=== PATIENT | female | born 1965 | race Caucasian/White ===

== ENCOUNTER 2019-11-10 12:54 | Observation (INO) | payer OTHER, BC ==
[2019-11-10 13:44] LABS: Absolute Lymphocytes (CBC) 1.9 K/uL (0.7-4.9); Basophils % 0.7 % (0-1.3); Hematocrit 35.3 % (36.0-45.0); MPV 9.6 fL (7.6-11.3); RBC Red Blood Cell Count 4.66 M/uL (3.86-4.86)
[2019-11-10 13:54] LABS: Protime INR 1.02
--- NOTE | 2019-11-10 13:59 | RAD REPORT ---
EXAM DESCRIPTION: RAD - Chest Single View - 11/10/2019 1:17 pm CLINICAL HISTORY: CHEST PAIN, left-sided COMPARISON: None TECHNIQUE: AP portable chest image was obtained 11/10/2019 1:17 pm . FINDINGS: Lungs are clear. Heart and vasculature are normal. No measurable pleural effusion and no p neumothorax. No acute bony abnormality seen. No acute aortic findings suspected. IMPRESSION: No acute cardiopulmonary process.
[2019-11-10 14:04] LABS: ALT/SGPT 22 U/L (12-78); AST/SGOT 16 U/L (15-37); Albumin 3.5 g/dL (3.4-5.0); Alkaline Phosphatase 88 U/L (45-117); BUN Blood Urea Nitrogen 19 mg/dL (7-18); Bicarbonate 25 mmol/L (21-32); Bilirubin Direct < 0.1 mg/dL (0-0.2); Bilirubin Total 0.2 mg/dL (0.2-1.0); Glucose Level 240 mg/dL (74-106); Magnesium 1.9 mg/dL (1.8-2.4); NT PRO-BNP 28 pg/mL (<125); Potassium 3.6 mmol/L (3.5-5.1); Protein, Total 6.9 g/dL (6.4-8.2); Sodium Level 139 mmol/L (136-145); Troponin (Emerg Dept Use Only) < 0.02 ng/mL (0.0-0.045)
[2019-11-10] MEDS ORDERED: MAGNE/ALUM HYDROXD 30 ML UCUP ONE (14:56)
[2019-11-10] MEDS ORDERED: ASPIRIN 81 MG CHEWABLE TABLET ONE (14:56)
[2019-11-10] MEDS ORDERED: NA CHLORIDE 0.9% 1,000 ML ONE (14:56)
[2019-11-10] MEDS ORDERED: LIDOCAINE VISCOUS 2% SOLN 15 ML UDC ONE (14:57)
--- NOTE | 2019-11-10 16:57 | ER ---
Nurse's Notes [facility] Name: Tiana Sloan Age: 54 yrs Sex: Female : 1965 Arrival Date: 11/10/2019 Time: 12:55 Bed 7 Private MD: Diagnosis: Chest pain, unspecified Presentation: 11/09 13:09 Chief complaint: Patient states: L sided chest pain x 2 weeks, worse w/ movement, also ph c/o numbness to L hand and slight SOB, denies dizziness, N/V or fever. Coronavirus screen: The patient has NOT traveled to a country currently being monitored by the [facility] within the last 14 days. The patient has NOT had contact with any known and/or suspected case of coronavirus. Ebola Screen: No symptoms or risks identified at this time. Initial Sepsis Screen: Does the patient meet any 2 criteria? No. Patient's initial sepsis screen is negative. Does the patient have a suspected source of infection? No. Patient's initial sepsis screen is negative. Risk Assessment: Do you want to hurt yourself or someone else? Patient reports no desire to harm self or others. 13:09 Method Of Arrival: Ambulatory ph 13:09 Acuity: PATRICA 3 ph Historical: - Allergies: 13:13 No Known Allergies; ph - PMHx: 13:13 Diabetes - NIDDM; ph - PSHx: 13:13 ; Gastric Bypass; ph - Immunization history:: Adult Immunizations unknown. - Social history:: Smoking status: Patient denies any tobacco usage or history of. Screenin:20 Abuse screen: Denies threats or abuse. Nutritional screening: No deficits noted. em Tuberculosis screening: No symptoms or risk factors identified. Fall Risk None identified. Assessment: 13:25 General: Appears in no apparent distress. comfortable, Behavior is calm, cooperative, em appropriate for age, Denies fever. Pain: Complains of pain in chest Pain does not radiate. Pain currently is 1 out of 10 on a pain scale. Quality of pain is described as heavy, Pain began 2 weeks. Neuro: Level of Consciousness is awake, alert, obeys commands, Oriented to person, place, time, situation, Appropriate for age Reports paresthesias in left hand. Cardiovascular: Capillary refill < 3 seconds Patient's skin is warm and dry. Rhythm is sinus rhythm. Respiratory: Airway is patent Respiratory effort is even, unlabored, Respiratory pattern is regular, symmetrical, Breath sounds are clear bilaterally. Denies cough. GI: Abdomen is flat, Patient currently denies nausea, vomiting. Derm: Skin is intact, is healthy with good turgor, Skin is pink, warm \T\ dry. Musculoskeletal: Capillary refill < 3 seconds, Range of motion: intact in all extremities. 14:30 Reassessment: Patient appears in no apparent distress at this time. No changes from em previously documented assessment. Patient and/or family updated on plan of care and expected duration. Pain level reassessed. Patient is alert, oriented x 3, equal unlabored respirations, skin warm/dry/pink. 16:07 Reassessment: Patient appears in no apparent distress at this time. Patient and/or em family updated on plan of care and expected duration. Pain level reassessed. Patient is alert, oriented x 3, equal unlabored respirations, skin warm/dry/pink. 17:22 Reassessment: Dr. Monson at bedside a this time. tw2 17:27 Reassessment: Patient appears in no apparent distress at this time. No changes from tw2 previously documented assessment. Patient and/or family updated on plan of care and expected duration. Pain level reassessed. Patient is alert, oriented x 3, equal unlabored respirations, skin warm/dry/pink. 18:09 Reassessment: Patient appears in no apparent distress at this time. dinner tray given. em 19:15 Reassessment: Patient appears in no apparent distress at this time. Patient and/or jb4 family updated on plan of care and expected duration. Pain level reassessed. Patient is alert, oriented x 3, equal unlabored respirations, skin warm/dry/pink. Pt reports being comfortable, denies needing anything at this time. Pt awaiting for a room assignment. 20:24 Reassessment: Patient appears in no apparent distress at this time. Patient and/or jb4 family updated on plan of care and expected duration. Pain level reassessed. Patient is alert, oriented x 3, equal unlabored respirations, skin warm/dry/pink. Pt informed of room assignment. 20:28 Reassessment: attempted to call report, instructed to wait for call back. jb4 20:45 Reassessment: Patient appears in no apparent distress at this time. Patient and/or jb4 family updated on plan of care and expected duration. Pain level reassessed. Patient is alert, oriented x 3, equal unlabored respirations, skin warm/dry/pink. Pt transferred upstairs via wheelchair. IV site dry and intact with no s/s of infiltration or phlebitis, saline lock. Vital Signs: 13:09 BP 109 / 68; Pulse 75; Resp 18; Temp 97.9; Pulse Ox 99% on R/A; Weight 62.6 kg; Height ph 5 ft. 10 in. (177.80 cm); Pain 1/10; 13:45 BP 98 / 69; Pulse 69; Resp 18; Pulse Ox 98% on R/A; Pain 1/10; em 14:48 BP 104 / 64; Pulse 58; Resp 17; Pulse Ox 97% on R/A; tw2 15:45 BP 115 / 75; Pulse 48; Resp 17; Pulse Ox 100% on R/A; tw2 16:45 BP 111 / 69; Pulse 62; Resp 17; Pulse Ox 97% on R/A; tw2 17:30 BP 114 / 70; Pulse 61; Resp 18; Pulse Ox 99% on R/A; em 18:45 BP 122 / 86; Pulse 97; Resp 20; Pulse Ox 99% on R/A; Pain 0/10; em 19:30 BP 118 / 75; Pulse 85; Resp 13; Pulse Ox 96% on R/A; jb4 20:24 BP 96 / 67; Pulse 80; Resp 13; Temp 98.8(O); Pulse Ox 95% ; jb4 13:09 Body Mass Index 19.80 (62.60 kg, 177.80 cm) ph ED Course: 12:55 Patient arrived in ED. ag5 13:01 David Serrano PA is PHCP. cp 13:01 Foreign Gu MD is Attending Physician. cp 13:05 EKG done, by ED staff, reviewed by David DARDEN. jp3 13:11 Brodie Putnam, CARITO is Primary Nurse. em 13:11 Triage completed. ph 13:13 Arm band placed on Patient placed in an exam room. EKG completed in triage. Results ph shown to MD. 13:15 XRAY Chest (1 view) In Process Unspecified. EDMS 13:20 Patient has correct armband on for positive identification. Placed in gown. Bed in low em position. Call light in reach. Adult w/ patient. cardiac monitor technician on. Pulse ox on. NIBP on. 13:20 Patient maintains SpO2 saturation greater than 95% on room air. em 13:25 Initial lab(s) drawn, by me, sent to lab. Inserted saline lock: 20 gauge in right em antecubital area, using aseptic technique. Blood collected. 16:45 EKG done, by ED staff, reviewed by David DARDEN. jp3 16:54 Marian Monson MD is Hospitalizing Provider. cp 17:55 Repeat lab(s) drawn. by ne, sent to lab. em 20:28 No provider procedures requiring assistance completed. Patient admitted, IV remains in jb4 place. Administered Medications: 15:00 Drug: NS 0.9% 1000 ml Route: IV; Rate: 1 bolus; Site: right antecubital; tw2 16:14 Follow up: IV Status: Completed infusion; IV Intake: 1000ml em 15:00 Drug: Aspirin Chewable Tablet 324 mg Route: PO; tw2 16:04 Follow up: Response: No adverse reaction em 15:00 Drug: GI Cocktail without - (Maalox Suspension 30 ml, Lidocaine Liquid 2 % 15 tw2 ml) Route: PO; 16:13 Follow up: Response: No adverse reaction; Marked relief of symptoms; Pain is decreased em Intake: 16:14 IV: 1000ml; Total: 1000ml. em Outcome: 16:55 Decision to Hospitalize by Provider. cp 20:45 Admitted to Tele accompanied by nurse, via wheelchair, room 407, with chart, Report jb4 called to CARITO Rosado 20:45 Condition: stable 20:45 Discharge instructions given to patient, Instructed on the need for admit, Demonstrated understanding of instructions. 20:48 Patient left the ED. jb4 Signatures: Dispatcher [employer] EDMS Brodie Putnam, RN RN Olivia Ho RN RN David Serrano PA PA cp Umm Price, CARITO RN tw2 Maxim Magallanes, CARITO RN jb4 Gerard Messer jp3 Ashvin Benton 5
--- NOTE | 2019-11-10 16:57 | EDPHYS ---
Physician Documentation [facility] Name: Tiana Sloan Age: 54 yrs Sex: Female : 1965 Arrival Date: 11/10/2019 Time: 12:55 Bed 7 Private MD: ED Physician Foreign Gu HPI: 11/09 13:15 This 54 yrs old Female presents to ER via Ambulatory with complaints of Chest cp Pain, Chest Pressure. 13:15 The patient or guardian reports chest pain that is located primarily in the anterior cp chest wall, left. 13:15 Onset: 2 week(s) ago. The pain does not radiate. Associated signs and symptoms: cp Pertinent positives: shortness of breath, Pertinent negatives: abdominal pain, cough, diarrhea, fever, headache, sore throat, vomiting, wheezing. Modifying factors: the patient symptoms are aggravated by nothing. Associated signs and symptoms: Pertinent negatives: abdominal pain, diaphoresis, headache, lower extremity pain, lower extremity swelling, recent travel, syncope. The chest pain is described as a pressure. Duration: The patient or guardian reports multiple episodes, that wax and wane. Historical: - Allergies: 13:13 No Known Allergies; ph - PMHx: 13:13 Diabetes - NIDDM; ph - PSHx: 13:13 ; Gastric Bypass; ph - Immunization history:: Adult Immunizations unknown. - Social history:: Smoking status: Patient denies any tobacco usage or history of. ROS: 13:20 Constitutional: Negative for body aches, chills, fever, poor PO intake. cp 13:20 Eyes: Negative for injury, pain, redness, and discharge. cp 13:20 ENT: Negative for drainage from ear(s), ear pain, sore throat, difficulty swallowing, cp difficulty handling secretions. 13:20 Cardiovascular: Positive for chest pain, Negative for edema, palpitations. 13:20 Respiratory: Negative for cough, shortness of breath, wheezing. 13:20 Abdomen/GI: Negative for abdominal pain, nausea, vomiting, and diarrhea, constipation, black/tarry stool, rectal bleeding. 13:20 Back: Negative for pain at rest, pain with movement. 13:20 Skin: Negative for rash. 13:20 Neuro: Negative for altered mental status, headache, syncope, weakness. 13:20 All other systems are negative. cp Exam: 13:23 ECG was reviewed by the Attending Physician. cp 13:25 Constitutional: The patient appears in no acute distress, alert, awake, cp non-diaphoretic, non-toxic, well developed, well nourished. 13:25 Head/Face: Normocephalic, atraumatic. Eyes: Pupils equal round and reactive to light, cp extra-ocular motions intact. Lids and lashes normal. Conjunctiva and sclera are non-icteric and not injected. Cornea within normal limits. Periorbital areas with no swelling, redness, or edema. ENT: Nares patent. No nasal discharge, no septal abnormalities noted. Tympanic membranes are normal and external auditory canals are clear. Oropharynx with no redness, swelling, or masses, exudates, or evidence of obstruction, uvula midline. Mucous membranes moist. Chest/axilla: Normal chest wall appearance and motion. Nontender with no deformity. No lesions are appreciated. Cardiovascular: Regular rate and rhythm with a normal S1 and S2. No gallops, murmurs, or rubs. Normal PMI, no JVD. No pulse deficits. Respiratory: Lungs have equal breath sounds bilaterally, clear to auscultation and percussion. No rales, rhonchi or wheezes noted. No increased work of breathing, no retractions or nasal flaring. Abdomen/GI: Soft, non-tender, with normal bowel sounds. No distension or tympany. No guarding or rebound. No evidence of tenderness throughout. Skin: Warm, dry with normal turgor. Normal color with no rashes, no lesions, and no evidence of cellulitis. 13:25 Neuro: Orientation: to person, place \T\ time. Mentation: is normal, Cerebellar function: is grossly normal, Motor: moves all fours, strength is normal, Sensation: is normal. Vital Signs: 13:09 BP 109 / 68; Pulse 75; Resp 18; Temp 97.9; Pulse Ox 99% on R/A; Weight 62.6 kg; Height ph 5 ft. 10 in. (177.80 cm); Pain 1/10; 13:45 BP 98 / 69; Pulse 69; Resp 18; Pulse Ox 98% on R/A; Pain 1/10; em 14:48 BP 104 / 64; Pulse 58; Resp 17; Pulse Ox 97% on R/A; tw2 15:45 BP 115 / 75; Pulse 48; Resp 17; Pulse Ox 100% on R/A; tw2 16:45 BP 111 / 69; Pulse 62; Resp 17; Pulse Ox 97% on R/A; tw2 17:30 BP 114 / 70; Pulse 61; Resp 18; Pulse Ox 99% on R/A; em 18:45 BP 122 / 86; Pulse 97; Resp 20; Pulse Ox 99% on R/A; Pain 0/10; em 19:30 BP 118 / 75; Pulse 85; Resp 13; Pulse Ox 96% on R/A; jb4 20:24 BP 96 / 67; Pulse 80; Resp 13; Temp 98.8(O); Pulse Ox 95% ; jb4 13:09 Body Mass Index 19.80 (62.60 kg, 177.80 cm) ph MDM: 13:05 Patient medically screened. cp 13:30 Differential diagnosis: abnormal EKG, acute myocardial infarction, acute pericarditis, cp cholecystitis, Cholelithiasis costochondritis, gastroesophageal reflux disease (GERD), peptic ulcer disease, pneumonia, pneumothorax, stable angina, unstable angina. 17:00 The patient was given aspirin in the Emergency Department. cp 17:00 Data reviewed: vital signs, nurses notes, lab test result(s), EKG, radiologic studies, cp plain films, I have discussed the patient's presentation/case with the attending Emergency Department Physician; and as a result, I will admit patient. 11/09 13:05 Order name: Basic Metabolic Panel; Complete Time: 14:17 cp 11/09 14:17 Interpretation: GLUC 240; BUN 19; GFR 60. cp 11/09 13:05 Order name: CBC with Diff; Complete Time: 14:17 cp 11/09 14:17 Interpretation: Normal except: HGB 11.2; HCT 35.3; MCV 75.8; MCH 23.9; MCHC 31.6; RDW cp 16.1. 11/09 13:05 Order name: LFT's; Complete Time: 14:17 cp 11/09 14:46 Interpretation: Normal except: A/G 1.0. cp 11/09 13:05 Order name: Magnesium; Complete Time: 14:17 cp 11/09 13:05 Order name: NT PRO-BNP; Complete Time: 14:17 cp 11/09 13:05 Order name: PT-INR; Complete Time: 14:17 cp 11/09 13:05 Order name: Troponin (emerg Dept Use Only); Complete Time: 14:17 cp 11/09 14:18 Interpretation: Within normal limits: TROPED < 0.02. cp 11/09 13:05 Order name: XRAY Chest (1 view); Complete Time: 14:17 cp 11/09 14:17 Interpretation: Report review. cp 11/09 13:05 Order name: EKG; Complete Time: 13:06 cp 11/09 15:50 Order name: EKG; Complete Time: 15:50 cp 11/09 17:40 Order name: Troponin I EDMS 11/09 13:05 Order name: Cardiac monitoring; Complete Time: 13:30 cp 11/09 13:05 Order name: EKG - Nurse/Tech; Complete Time: 13:30 cp 11/09 13:05 Order name: IV Saline Lock; Complete Time: 13:29 cp 11/09 13:05 Order name: Labs collected and sent; Complete Time: 13:29 cp 11/09 13:05 Order name: O2 Per Protocol; Complete Time: 13:29 cp 11/09 13:05 Order name: O2 Sat Monitoring; Complete Time: 13:29 cp 11/09 15:50 Order name: EKG - Nurse/Tech; Complete Time: 17:41 cp 11/09 17:39 Order name: Diet Regular; Complete Time: 17:39 cp EC:23 Rate is 71 beats/min. Rhythm is regular. GA interval is normal. QRS interval is normal. cp QT interval is normal. T waves are Flattened in lead III. Interpreted by me. Reviewed by me. Administered Medications: 15:00 Drug: NS 0.9% 1000 ml Route: IV; Rate: 1 bolus; Site: right antecubital; tw2 16:14 Follow up: IV Status: Completed infusion; IV Intake: 1000ml em 15:00 Drug: Aspirin Chewable Tablet 324 mg Route: PO; tw2 16:04 Follow up: Response: No adverse reaction em 15:00 Drug: GI Cocktail without - (Maalox Suspension 30 ml, Lidocaine Liquid 2 % 15 tw2 ml) Route: PO; 16:13 Follow up: Response: No adverse reaction; Marked relief of symptoms; Pain is decreased em Disposition: 11/10/19 16:55 Hospitalization ordered by Marian Monson for Observation. Preliminary diagnosis is Chest pain, unspecified. - Bed requested for Telemetry/MedSurg (observation). - Status is Observation. jb4 - Condition is Stable. - Problem is new. - Symptoms have improved. Addendum: 11/23/2019 12:58 Co-signature as Attending Physician, Munir Ramos MD I agree with the assessment and k dr plan of care. Signatures: Dispatcher [employer] EDWY Munir Ramos MD MD [facility] Olivia Ho RN RN ph David Serrano PA PA cp Dena Deleon, RN RN Umm Price RN RN tw2 Maxim Magallanes, RN RN jb4 Brodie Putnam RN em Corrections: (The following items were deleted from the chart) 11/09 20:18 16:55 Hospitalization Ordered by Marian Monson MD for Observation. Preliminary diagnosis cg is Chest pain, unspecified. Bed requested for Telemetry/MedSurg (observation). Status is Observation. Condition is Stable. Problem is new. Symptoms have improved. cp 20:48 20:18 11/10/2019 16:55 Hospitalization Ordered by Marian Monson MD for Observation. jb4 Preliminary diagnosis is Chest pain, unspecified. Bed requested for Telemetry/MedSurg (observation). Status is Observation. Condition is Stable. Problem is new. Symptoms have improved. cg 21:45 13:15 The patient or guardian reports chest pain that is located primarily in the cp anterior chest wall, bilaterally, cp
--- NOTE | 2019-11-10 17:45 | EKG ---
Test Date: 2019-11-10 Test Time: 13:02:27 Gm Video: RHODA MEASUREMENT RESULTS: Intervals: Rate: 71 NJ: 164 QRSD: 80 QT: 394 QTc: 428 Sunflower: P: 44 NJ: 164 QRS: -40 T: 43 INTERPRETIVE STATEMENTS: Normal sinus rhythm Left axis deviation Low voltage QRS Inferior infarct, age undetermined Cannot rule out Anteroseptal infarct, age undetermined Abnormal ECG Compared to ECG 10/15/2016 17:19:14 Left-axis deviation now present Low QRS voltage now present Myocardial infarct finding now present Sinus bradycardia no longer present Sinus arrhythmia no longer present Electronically Signed On 11-10-19 17:44:28 CDT by Kieran Orta
--- NOTE | 2019-11-10 17:46 | P.CNS ---
Date of Consult: 11/10/19 Reason for Consult: Chest pain Chief Complaint: Chest pain History of Present Illness: Patient is a 54-year-old female with past medical history of diabetes nonsmoker comes in with chest pressure of 2 weeks duration. Patient cannot remember what she was doing when the pain 1st started. No associated nausea vomiting diaphoresis or shortness of breath. Patient's chest pressure is intermittent. She states it is exacerbated by eating. Patient did report some tingling in her left hand however should be noted that she has carpal tunnel syndrome. Patient presented to the ER today as she had been wanting to have herself evaluated. Her vital signs were stable. Her workup revealed negative cardiac enzymes patient's EKG initially was normal sinus rhythm however repeat EKG showed nonspecific T-wave inversions. Patient's pain had resolved with GI cocktail. Hospitalist service was contacted for possible admission. Patient was seen and examined case was discussed with metal organ pipe maker Dr. Orta. Plan is to repeat cardiac enzymes and to discharge home with close followup if troponin is negative. This is likely atypical chest pain may be related to GERD gastric ulcer. Allergies No Known Allergies Allergy (Verified 10/15/16 16:54) Home Medications: Dapagliflozin/Metformin HCl [Xigduo Xr 5 mg-1,000 mg Tablet] 1 each PO BID 10/15 Dulaglutide [Trulicity] 1.5 mg SQ DAILY 10/15/16 Multivitamin [Multivitamins] 1 each PO DAILY 10/15/16 Codeine/APAP [Tylenol W/Codeine #3 tab] 1 tab PO Q4HP PRN #30 tab 10/19/16 Sulfamethoxazole/Trimethoprim [Bactrim Ds Tablet] 1 each PO BID #10 tablet 10/19 - Past Medical/Surgical History Diabetic: Yes -: Diabetes -: Carpal tunnel syndrome -: x2 -: Carpal tunnel surgery on the right - Social History Smoking Status: Never smoker Alcohol use: No Place of Residence: Home Review of Systems 10-point ROS is otherwise unremarkable Cardiovascular: As per HPI Physical Examination General: Alert, In no apparent distress, Oriented x3 HEENT: Atraumatic, PERRLA, Mucous membr. moist/pink, EOMI, Sclerae nonicteric Neck: Supple, JVD not distended Respiratory: Clear to auscultation bilaterally, Normal air movement Cardiovascular: No edema, Normal pulses, Regular rate/rhythm, Normal S1 S2 Gastrointestinal: Normal bowel sounds, Soft and benign, Non-distended, No tenderness Musculoskeletal: No tenderness Integumentary: No rashes Neurological: Normal gait, Normal speech, Normal tone, Normal affect Laboratory Data (last 24 hrs) 11/10/19 13:25: PT 12.0, INR 1.02 11/10/19 13:25: WBC 6.2, Hgb 11.2 L, Hct 35.3 L, Plt Count 216 11/10/19 13:25: Sodium 139, Potassium 3.6, BUN 19 H, Creatinine 0.97, Glucose 240 H, Magnesium 1.9, Total Bilirubin 0.2, AST 16, ALT 22, Alkaline Phosphatase 88 Imagings Data: IMPRESSION: No acute cardiopulmonary process. Chest x-ray - Problems (1) Atypical chest pain Current Visit: Yes Status: Acute (2) Diabetes mellitus type 2 in nonobese Current Visit: Yes Status: Acute (3) Carpal tunnel syndrome Current Visit: Yes Status: Acute Conclusions/Impression: Likely atypical chest pain. GI source either GERD or ulcer. Pain is worse with food. Improved with GI cocktail. Negative cardiac enzyme Nonspecific T-wave changes Cardiology recommends outpatient followup
--- NOTE | 2019-11-10 18:08 | P.HP ---
Certification for Inpatient Patient admitted to: Observation With expected LOS: <2 Midnights Practitioner: I am a practitioner with admitting privileges, knowledge of patient current condition, hospital course, and medical plan of care. Services: Services provided to patient in accordance with Admission requirements found in Title 42 Section 412.3 of the Code of Federal Regulations Patient History Date of Service: 11/10/19 Reason for admission: Chest pain History of Present Illness: Patient is a 54-year-old female with past medical history of diabetes nonsmoker comes in with chest pressure of 2 weeks duration. Patient cannot remember what she was doing when the pain 1st started. No associated nausea vomiting diaphoresis or shortness of breath. Patient's chest pressure is intermittent. She states it is exacerbated by eating. Patient did report some tingling in her left hand however should be noted that she has carpal tunnel syndrome. Patient presented to the ER today as she had been wanting to have herself evaluated. Her vital signs were stable. Her workup revealed negative cardiac enzymes patient's EKG initially was normal sinus rhythm however repeat EKG showed nonspecific T-wave inversions. Patient's pain had resolved with GI cocktail. Allergies No Known Allergies Allergy (Verified 10/15/16 16:54) Home medications list reviewed: Yes Home Medications: Dapagliflozin/Metformin HCl [Xigduo Xr 5 mg-1,000 mg Tablet] 1 each PO BID 10/15 Dulaglutide [Trulicity] 1.5 mg SQ DAILY 10/15/16 Multivitamin [Multivitamins] 1 each PO DAILY 10/15/16 Codeine/APAP [Tylenol W/Codeine #3 tab] 1 tab PO Q4HP PRN #30 tab 10/19/16 Sulfamethoxazole/Trimethoprim [Bactrim Ds Tablet] 1 each PO BID #10 tablet 10/19 - Past Medical/Surgical History Diabetic: Yes -: Diabetes -: Carpal tunnel -: Carpal tunnel surgery right - Family History Mother -: Heart disease (Congestive heart failure) - Social History Smoking Status: Never smoker Alcohol use: No Place of Residence: Home Review of Systems 10-point ROS is otherwise unremarkable Cardiovascular: As per HPI Physical Examination - Vital Signs Temperature: 97.9 F Blood Pressure: 109/68 Pulse: 75 Respirations: 18 Pulse Ox (%): 99 - Physical Exam General: Alert, In no apparent distress, Oriented x3 HEENT: Atraumatic, PERRLA, Mucous membr. moist/pink, EOMI, Sclerae nonicteric Neck: Supple, JVD not distended Respiratory: Clear to auscultation bilaterally, Normal air movement Cardiovascular: No edema, Normal pulses, Regular rate/rhythm, Normal S1 S2 Gastrointestinal: Normal bowel sounds, Soft and benign, Non-distended, No tenderness Musculoskeletal: No clubbing, No tenderness Integumentary: No rashes Neurological: Normal gait, Normal speech, Normal strength at 5/5 x4 extr, Normal tone, Cranial nerves 3-12 intact, Normal affect - Studies Laboratory Data (last 24 hrs) 11/10/19 13:25: PT 12.0, INR 1.02 11/10/19 13:25: WBC 6.2, Hgb 11.2 L, Hct 35.3 L, Plt Count 216 11/10/19 13:25: Sodium 139, Potassium 3.6, BUN 19 H, Creatinine 0.97, Glucose 240 H, Magnesium 1.9, Total Bilirubin 0.2, AST 16, ALT 22, Alkaline Phosphatase 88 Imagings Data: Chest x-ray shows no acute abnormalities Assessment and Plan - Problems (Diagnosis) (1) Chest pain Current Visit: Yes Status: Acute Qualifiers: Chest pain type: other chest pain Qualified Code(s): R07.89 - Other chest pain; R07.8 - Other chest pain (2) Diabetes mellitus type 2 in nonobese Current Visit: Yes Status: Acute (3) Carpal tunnel syndrome Current Visit: Yes Status: Acute - Plan Serial cardiac enzymes Start on chest pain guidelines Repeat EKG Spoke with Cardiology on-call Dr. Orta. If cardiac enzymes are negative he recommends discharge home with outpatient follow up. Pain is likely atypical stemming from a GI source such as acid reflux or gastric ulcer. Will start on PPI Sliding scale insulin Monitor Accu-Cheks Discharge Plan: Home Plan to discharge in: 24 Hours - Advance Directives Does patient have a Living Will: No Does patient have a Durable POA for Healthcare: No
[2019-11-10] MEDS ORDERED: FAMOTIDINE 20 MG/2 ML VIAL IV SCH (21:12)
[2019-11-10] MEDS ORDERED: MORPHINE 4 MG/ML SYR IV PRN (21:12)
[2019-11-10] MEDS ORDERED: ACETAMINOPHEN 500 MG TAB PO PRN (21:12)
[2019-11-10] MEDS: carvediloL 3.125 MG TAB PO SCH (21:12)
[2019-11-10] MEDS ORDERED: NITROGLYCERIN 0.4 MG/TAB SL PRN (21:12)
[2019-11-10 21:13] VITALS: BMI 25.5
[2019-11-10] MEDS ORDERED: ENOXAPARIN 40 MG/0.4 ML SQ SCH (22:00)
[2019-11-10] MEDS: INSULIN -REGULAR HUMAN 50 UNIT/0.5 ML ML SQ SCH (22:02)
[2019-11-10] MEDS: NA CHLORIDE 0.9% 1,000 ML IV SCH (22:46)
[2019-11-11 05:07] LABS: Absolute Lymphocytes (CBC) 2.4 K/uL (0.7-4.9); Basophils % 0.9 % (0-1.3); Hematocrit 33.9 % (36.0-45.0); Lymphocytes % 41.1 % (15.3-44.8); MPV 9.7 fL (7.6-11.3); RBC Red Blood Cell Count 4.44 M/uL (3.86-4.86)
[2019-11-11 05:10] LABS: Potassium 3.7 mmol/L (3.5-5.1)
[2019-11-11] MEDS ORDERED: NA CHLORIDE 0.9% 1,000 ML IV ONE (05:43)
[2019-11-11] MEDS: carvediloL 3.125 MG TAB PO SCH (05:47)
[2019-11-11] MEDS: INSULIN -REGULAR HUMAN 50 UNIT/0.5 ML ML SQ SCH ×2 (07:30→11:30)
[2019-11-11] MEDS: NA CHLORIDE 0.9% 1,000 ML IV SCH (08:08)
[2019-11-11 08:14] VITALS: O2SAT 96
[2019-11-11] MEDS ORDERED: ASPIRIN EC 81 MG TAB PO SCH (09:00)
[2019-11-11] MEDS ORDERED: lisinopriL 10 MG TAB PO SCH (09:00)
[2019-11-11] MEDS ORDERED: FAMOTIDINE 20 MG/2 ML VIAL IV SCH (09:00)
[2019-11-11 12:08] VITALS: BP 101/59; TEMP 97.6
--- NOTE | 2019-11-11 23:18 | DS ---
Date of Discharge: 11/11/2019 Discharge Diagnoses: 1.Atypical chest pain. 2.Diabetes mellitus type 2 with hyperglycemia. 3.Carpal tunnel syndrome. 4.Status post gastric bypass surgery with likely anastomotic ulcer. Hospital Course: Patient is a 54-year-old female, who comes in with past medical history of diabetes with 2 weeks of chest pain. Patient was admitted to the hospital and evaluated for chest pain rule out. Her cardiac enzymes were negative. Her story seemed to be more consistent with gastrointestina l issues including possible anastomotic ulcer from her gastric bypass surgery. Patient's symptoms wo rsened with eating and improved with GI cocktail in the ER. Patient was started on PPI b.i.d. Her c ardiac enzymes were negative x3. Echocardiogram not available. Spoke with certified caregiver on-call, Dr. Orta. He recommended outpatient followup for the patient. Lipid panel showed mildly elevated tri glycerides at 245. She was counseled regarding her diet. Patient also found to be somewhat anemic w ith microcytosis. This is likely maybe possibly due to pernicious anemia due to her gastric bypass. She was instructed to follow up with GI and establish care with GI for EGD and to supplement vitamin s due to her pernicious anemia. She will be given trial of Protonix as this is likely an anastomotic gastric ulcer. Patient's symptoms have been ongoing for the past 2 weeks. Followup: She is to follow up with primary care physician in 2-3 days, return to ER for worsening co ndition. Diet: Diabetic. Activity: As tolerated. Medications: As per medication reconciliation list. Physical Examination: GENERAL: Awake, alert, and oriented x3. No acute distress. CV: S1, S2. No murmurs. RESPIRATORY: Moving air well bilaterally. No wheezing or stridor. GASTROINTESTINAL: Abdomen is soft, nontender, nondistended. Positive bowel sounds. EXTREMITIES: No clubbing, cyanosis, or edema. NEUROLOGIC: Nonfocal. SA/MODL Voice ID: [id number] Report ID: [id number]
--- NOTE | 2019-11-12 09:01 | EKG ---
Test Date: 2019-11-10 Test Time: 16:46:59 Shaping Machine Operator: EDGARD MEASUREMENT RESULTS: Intervals: Rate: 54 CA: 160 QRSD: 80 QT: 420 QTc: 398 [place]: P: 81 CA: 160 QRS: -9 T: 103 INTERPRETIVE STATEMENTS: Sinus bradycardia with marked sinus arrhythmia Low voltage QRS Septal infarct, age undetermined Abnormal ECG Compared to ECG 11/10/2019 13:02:27 Sinus rhythm no longer present Left-axis deviation no longer present Myocardial infarct finding still present Electronically Signed On 11-12-19 08:58:06 CDT by Dami Harden
--- NOTE | 2019-11-15 10:59 | EKG ---
Test Date: 2019-11-11 Test Time: 09:47:42 [employer] Attendant: MICHAELLE MEASUREMENT RESULTS: Intervals: Rate: 82 UT: 176 QRSD: 88 QT: 384 QTc: 448 [place]: P: 46 UT: 176 QRS: -26 T: 33 INTERPRETIVE STATEMENTS: Normal sinus rhythm Low voltage QRS Septal infarct, age undetermined Abnormal ECG Compared to ECG 11/10/2019 16:46:59 Sinus bradycardia no longer present Sinus arrhythmia no longer present Myocardial infarct finding still present Electronically Signed On 11-15-19 10:56:27 CDT by Dami Harden
== END 2019-11-11 12:49 | disposition home or self-care (01) ==
LOC: ER 12:54 → ERHOLD 18:09 → 4TH 20:29
PROVIDERS: ADMIT Family Medicine; ATTEND Family Medicine
DX: R07.89 Other chest pain (principal); E11.65 Type 2 diabetes mellitus with hyperglycemia; G56.00 Carpal tunnel syndrome, unspecified upper limb; D50.9 Iron deficiency anemia, unspecified; E78.1 Pure hyperglyceridemia; R94.31 Abnormal electrocardiogram [ECG] [EKG]; Z98.84 Bariatric surgery status; Z79.84 Long term (current) use of oral hypoglycemic drugs; Z79.899 Other long term (current) drug therapy
CPT/HCPCS: 93005 ×3; 85025 ×2; 80048 ×2; 36415; 83735; 85610; 80061; 82947 ×3; 80076; 84484 ×3; 83880; 71045; 94760 ×2; 96360; 99285; J1650; J7030 ×4; G0378 ×3

== ENCOUNTER 2021-04-04 06:20 | Day surgery (SDC) | payer OTHER, BC ==
[2021-03-31 10:46] LABS: Absolute Lymphocytes (CBC) 1.3 K/uL (0.7-4.9); Basophils % 0.5 % (0-1.3); Hematocrit 33.6 % (36.0-45.0); Lymphocytes % 17.1 % (15.3-44.8); MPV 8.8 fL (7.6-11.3)
--- NOTE | 2021-03-31 10:46 | RAD REPORT ---
EXAM DESCRIPTION: Fredrick Lott (2 Views)03/31/2021 10:19 am CLINICAL HISTORY: Preop for carpal tunnel surgery COMPARISON: 2019 FINDINGS: The lungs appear clear of acute infiltrate. The heart is normal size IMPRESSION: No acute abnormalities displayed
[2021-03-31 11:08] LABS: Protime INR 1.09
[2021-03-31 11:10] LABS: Potassium 3.6 mmol/L (3.5-5.1)
[2021-03-31 12:46] LABS: Blood Morphology Comment NOTED (NOT SEEN); Hypochromasia 1+; Platelet Estimate ADEQ; White Blood Cell Scan OK (OK)
[2021-04-04] MEDS ORDERED: NA CHLORIDE 0.9% 1,000 ML ONE (07:04)
[2021-04-04] MEDS ORDERED: CEFAZOLIN/SWI 1gm 1 GM/10 ML SYR ONE (07:04)
[2021-04-04] MEDS ORDERED: propofoL 200 MG/20 ML VIAL IV ONE (07:35)
[2021-04-04] MEDS ORDERED: FENTANYL CITR 100 MCG/2 ML ONE (07:35)
[2021-04-04] MEDS ORDERED: MIDAZOLAM HCL 2 MG/2 ML INJ ONE (07:35)
[2021-04-04] MEDS ORDERED: ONDANSETRON 4 MG/2 ML VIAL ONE (07:37)
[2021-04-04] MEDS ORDERED: KETOROLAC 30 MG/ML INJ ONE (07:38)
[2021-04-04] MEDS ORDERED: LIDOCAINE 2% MPF 5 ML VIAL ONE (07:38)
[2021-04-04] MEDS ORDERED: BUPIVACAINE 0.25% PF 30 ML VIAL ONE (07:47)
--- NOTE | 2021-04-04 08:37 | P.BOP ---
Preoperative diagnosis: left carpal tunnel syndrome, left trigger thumb Postoperative diagnosis: same Primary procedure: left open carpal tunnel release Secondary procedure: left trigger thumb release Corset Maker: NONE,NONE Estimated blood loss: 3 cc Specimen: none Findings: see dictation Anesthesia: General Complications: None Implants: none Fluids & blood products: per anesthesia record; TT: 35 mins @ 250 mmHg Transferred to: Recovery Room Condition: Good
[2021-04-04 09:53] VITALS: BP 115/60; TEMP 97.9; O2SAT 98
[2021-04-04] MEDS ORDERED: CODEINE 30MG/APAP 300MG TAB ONE (09:55)
--- NOTE | 2021-04-04 09:59 | OP ---
Date of Procedure: 04/04/2021 Surgeon: Bharat Berry MD Preoperative Diagnoses: 1.Left carpal tunnel syndrome. 2.Left trigger thumb. Postoperative Diagnoses: 1.Left carpal tunnel syndrome. 2.Left trigger thumb. Procedures Performed: 1.Left open carpal tunnel release. 2.Left thumb A1 julio cesar release. Anesthesia: General endotracheal, LMA. Fluids: Per anesthesia record. Estimated Blood Loss: 3 cc. Tourniquet Time: 135 minutes at 250 mmHg. Implants: None. Complications: None. Indication For Procedure: Tiana is a 55-year-old female, who presented to my clinic with signs, sym ptoms, and EMG findings consistent with left hand carpal tunnel syndrome as well as left trigger thum b. I discussed with the patient at length risks and benefits associated with operative and nonoperat williams treatment. She expressed understanding and elected to proceed with operative treatment. Description Of Procedure: After informed consent was obtained, the patient was identified in the pre operative holding area and the left upper extremity was marked. The patient was then taken back to [facility] operating room, transferred to the operating table in supine fashion, and placed under general LMA anesthesia. The left upper extremity was then prepped and draped in usual sterile fashion. A time- out was initiated. The correct patient and procedure were confirmed and identified. The patient did receive her preoperative prophylactic antibiotics. The left upper extremity then exsanguinated usin g an Esmarch and tourniquet was inflated to 250 mmHg. Approximately, a 3 cm longitudinal incision wa s made just ulnar to the thenar crease to first proceed with carpal tunnel release. Dissection was t hen taken down to the palmar fascia, which was identified. A self-retaining retractor was then place d. A Martin elevator was placed just deep to the palmar fascia and deep to the transverse carpal liga ment to protect the median nerve at all times. A 15 blade was then used to release the palmar fascia and transverse carpal ligament with Martin elevator protecting the median nerve at all times. Any re maining fascial bands were released using blunt-tip Metzenbaum scissors with the tips pointed superfi cially again to avoid any trauma to the medial nerve. The wound was then irrigated thoroughly with n ormal saline. Next, approximately a 1.5 cm incision was made in line with the thumb flexion crease a t the level of the A1 julio cesar. Dissection was then taken down with the A1 julio cesar. The radial digital nerve was then gently retracted radially and identified. The A1 julio cesar was then noted and a 15 blad e was then used to incise the flexor tendon sheath. There was tenosynovial fluid that was expressed consistent with significant stenosing tenosynovitis. A tenotomy was then used to release the complet e A1 julio cesar and a small amount of tendon sheath was excised to minimize risk of recurrence. The tend on was then brought out through the incision using a Ragnell with full excursion without any triggeri ng noted. The wound was then irrigated thoroughly with normal saline. The skin incisions were then approximated using a 5-0 Prolene. Sterile dressings were applied. Tourniquet was let down. The pat ient was awakened and transferred to PACU in stable condition. Postoperative Plan: She will be nonweightbearing on her left upper extremity. Physical therapy star latisha. She will work on range of motion exercises at home and follow up in 1 week for suture removal. CV/MODL Voice ID: [id number] Report ID: [id number]
== END 2021-04-04 09:50 | disposition home or self-care (01) ==
LOC: OR 06:20
PROVIDERS: ATTEND Orthopaedic Surgery Sports Medicine
PROC: 01N50ZZ Release Median Nerve, Open Approach (ICD-10-PCS; principal; 2021-04-04 07:30)
PROC: 0LN80ZZ Release Left Hand Tendon, Open Approach (ICD-10-PCS; 2021-04-04 07:30)
DX: M65.312 Trigger thumb, left thumb (principal); G56.02 Carpal tunnel syndrome, left upper limb; M79.642 Pain in left hand; Z20.822 Contact with and (suspected) exposure to COVID-19
CPT/HCPCS: 93005; 85025; 80048; 36415; 85610; 82947 ×2; 85730; 71046; 64721; 26055; U0002; J2704; J2250; J3010; J0690; J7030; J2405